=== PATIENT | female | born 1980 | race Caucasian/White ===

== ENCOUNTER 2018-08-08 11:00 | Inpatient (IN) | payer OTHER, SELFPAY ==
[2018-08-08] MEDS ORDERED: Ondansetron PF 4 MG/2 ML Vial IVP PRN ×3 (11:10→16:59)
[2018-08-08] MEDS ORDERED: Promethazine HCl 25 MG/ML VIAL IM PRN ×3 (11:10→16:59)
[2018-08-08] MEDS ORDERED: Calcium Gluc 4.6 MEQ/10 ML (100 MG/ML) SLOW IVP PRN (11:10)
[2018-08-08] MEDS ORDERED: Magnesium Sulfate 20 gm/500 ml 20 GM/500 ML BAG IVPB SCH (11:15)
[2018-08-08 12:13] LABS: #Eosinphils 0.1 thou/uL (0.0-0.7); #Lymphocytes 1.2 thou/uL (1.20-3.40); #Monocytes 0.4 thou/uL (0.11-0.59); #Neutrophils 7.9 thou/uL (1.40-6.50); %Basophils 0.3 % (0.0-1.0); %Lymphocytes 12.3 % (21.0-51.0); %Monocytes 4.4 % (0.0-10.0); Hemoglobin 13.4 g/dL (12.0-16.0); Mean Corpuscular HGB CONC 34.1 g/dL (32.0-36.0); Mean Corpuscular Hemoglobin 33.2 pg (27.0-31.0); Mean Corpuscular Volume 97.1 fL (78.0-98.0); Mean Platelet Volume 9.5 fL (7.4-10.4); Platelet Count 187 thou/uL (130-400); Red Blood Cell (RBC) Count 4.04 mill/uL (4.20-5.40); White Blood Cell (WBC) Count 9.6 thou/uL (4.8-10.8)
[2018-08-08] MEDS ORDERED: Ondansetron PF 4 MG/2 ML Vial ONE ×2 (12:15→16:51)
[2018-08-08] MEDS ORDERED: ePHEDrine 50 MG/ML VIAL ONE (12:15)
[2018-08-08] MEDS ORDERED: Ketorolac Tromethamine 30 MG/ML VIAL ONE ×2 (12:15→16:51)
[2018-08-08 12:38] LABS: ALT (SGPT) 28 U/L (8-55); AST (SGOT) 57 U/L (5-34); Albumin 3.3 g/dL (3.5-5.0); Alkaline Phosphatase 171 U/L (40-150); Anion Gap 15 mmol/L (10-20); BUN (Urea Nitrogen) 8 mg/dL (7.0-18.7); Bilirubin, Total 0.3 mg/dL (0.2-1.2); Calc. Creatinine Clearance 0 mL/min (70-130); Calcium 9.3 mg/dL (7.8-10.44); Carbon Dioxide 18 mmol/L (22-29); Chloride 109 mmol/L (98-107); Estimated GFR-MDRD 83; Globulin 3.8 g/dL (2.4-3.5); Glucose 91 mg/dL (70-105); Potassium 5.6 mmol/L (3.5-5.1); Protein, Total 7.1 g/dL (6.0-8.3); Sodium 136 mmol/L (136-145)
[2018-08-08 12:49] VITALS: BMI 35.2
[2018-08-08 12:53] LABS: Hep B Surf Ag Non-Reactive S/CO (NonReactive); Syphilis Antibody Nonreactive (Nonreactive); Syphilis Antibody Index 0.04 S/CO (<1.00 Non-Reactive)
[2018-08-08] MEDS ORDERED: Magnesium Sulfate 20 GM/WATER 500 ML BAG IVPB SCH (13:00)
[2018-08-08] MEDS ORDERED: Bicitra 30 ML UDCUP PO SCH (13:00)
[2018-08-08] MEDS ORDERED: CEFAZOLIN 2 GM in Premix Bag 1 BAG IVPB SCH (13:00)
[2018-08-08] MEDS: Lactated Ringer's 1,000 ML IV SCH ×2 (14:16→15:56)
[2018-08-08] MEDS ORDERED: ePHEDrine/0.9% NaCl/PF SYRINGE 50 mg/10 ml ONE ×2 (16:51→18:09)
[2018-08-08] MEDS ORDERED: MORPHINE 5 MG/10 ML PF VIAL ONE (16:51)
[2018-08-08] MEDS ORDERED: Oxytocin 10 UNITS/ML VIAL ONE ×3 (16:51→18:42)
[2018-08-08] MEDS ORDERED: Promethazine HCl 25 MG SUPP PR PRN ×2 (16:52→16:59)
[2018-08-08] MEDS ORDERED: Meperidine HCl/PF 25 MG/ML VIAL SLOW IVP PRN ×2 (16:52→16:59)
[2018-08-08] MEDS ORDERED: Naloxone HCl 0.4 mg/ml Vial IVP PRN ×4 (16:52→16:59)
[2018-08-08] MEDS ORDERED: diphenhydrAMINE 50 MG/ML VIAL IVP PRN ×2 (16:52→16:59)
[2018-08-08] MEDS ORDERED: Eucerin (Mineral Oil/Petrolatum,White) 30 gm Jar TOP PRN ×2 (16:52→16:59)
[2018-08-08] MEDS ORDERED: HYDROmorphone 2 MG/ML VIAL SLOW IVP PRN ×2 (16:52→16:59)
[2018-08-08] MEDS ORDERED: Ondansetron HCl/PF 4 MG/2 ML Vial IVP PRN ×2 (16:52→16:59)
[2018-08-08] MEDS ORDERED: L&D-Morphine 4 MG/ML VIAL SLOW IVP PRN (16:52)
[2018-08-08] MEDS ORDERED: Naloxone HCl 0.4 mg/ml Vial IV PRN ×2 (16:52→16:59)
[2018-08-08] MEDS ORDERED: Ketorolac Tromethamine 30 MG/ML VIAL IVP PRN ×2 (16:52→16:59)
[2018-08-08] MEDS ORDERED: Communication Order-Pharmacy FS SCH ×2 (17:00)
[2018-08-08] MEDS ORDERED: Ketorolac Tromethamine 30 MG/ML VIAL IVP SCH ×2 (17:00)
[2018-08-08] MEDS ORDERED: HYDROcodone/Acetaminophen 5/325 mg Tablet PO PRN (22:30)
[2018-08-08] MEDS ORDERED: Acetaminophen 325 MG TAB PO PRN (22:30)
[2018-08-08] MEDS ORDERED: Simethicone Chewable 80 MG TAB PO PRN (22:30)
[2018-08-08] MEDS ORDERED: NS / Oxytocin 40 units/1000ml 1,000 ML IV SCH (22:30)
[2018-08-08] MEDS ORDERED: Lanolin Ointment 7 GM TUBE TOP PRN (22:30)
[2018-08-09] MEDS: Docusate Calcium (SURFAK) 240 MG CAP PO SCH ×3 (01:36→20:10)
[2018-08-09] MEDS: Ferrous Sulfate 325 MG TAB PO SCH ×3 (01:36→20:10)
[2018-08-09] MEDS: Lactated Ringer's 1,000 ML IV SCH (02:00)
[2018-08-09 06:16] LABS: Hemoglobin 9.6 g/dL (12.0-16.0); Mean Corpuscular HGB CONC 34.1 g/dL (32.0-36.0); Mean Corpuscular Hemoglobin 34.2 pg (27.0-31.0); Mean Platelet Volume 9.1 fL (7.4-10.4); Platelet Count 164 thou/uL (130-400); RBC Distribution Width 12.9 % (11.5-14.5); Red Blood Cell (RBC) Count 2.81 mill/uL (4.20-5.40); White Blood Cell (WBC) Count 12.7 thou/uL (4.8-10.8)
[2018-08-09] MEDS ORDERED: CEFAZOLIN 2 GM in Premix Bag 1 BAG IVPB SCH (09:00)
[2018-08-09] MEDS ORDERED: Adacel (T-DAP) 0.5 ML SYRINGE IM ONE (09:00)
[2018-08-09] MEDS: Prenatal Vitamin 1 TAB PO SCH (09:20)
[2018-08-09] MEDS: Ibuprofen 800 MG TAB PO SCH (20:10)
[2018-08-09] MEDS: HYDROcodone/Acetaminophen 5/325 mg Tablet PO PRN (22:02)
[2018-08-10] MEDS: HYDROcodone/Acetaminophen 5/325 mg Tablet PO PRN ×3 (02:57→17:18)
[2018-08-10] MEDS: Ibuprofen 800 MG TAB PO SCH ×3 (06:18→21:57)
[2018-08-10] MEDS: Ferrous Sulfate 325 MG TAB PO SCH ×2 (08:40→21:57)
[2018-08-10] MEDS: Docusate Calcium (SURFAK) 240 MG CAP PO SCH ×2 (08:40→21:57)
[2018-08-10] MEDS: Prenatal Vitamin 1 TAB PO SCH (08:40)
--- NOTE | 2018-08-10 13:03 | OP ---
DATE OF PROCEDURE: 08/08/2018 RESIDENT SURGEON: Arlene Malik DO PREOPERATIVE DIAGNOSES: 1. Intrauterine at 36 and 6/7th weeks. 2. In vitro fertilization . 3. Preeclampsia. 4. Declines trial of labor. POSTOPERATIVE DIAGNOSES: 1. Intrauterine at 36 and 6/7th weeks. 2. In vitro fertilization . 3. Preeclampsia. 4. Declines trial of labor. PROCEDURE PERFORMED: Primary low transverse section. ANESTHESIA: Spinal catheterization. FINDINGS: 1. Severe preeclampsia - blood pressure, proteinuria, elevated liver function, edema, and headache. 2. Vigorous female , 6 pounds 5 ounces, Apgars 8 and 9. 3. Normal uterus, tubes, and ovaries. COMPLICATIONS: None. SPECIMENS REMOVED: Cord blood. BLOOD LOSS: Approximately 500 mL. HISTORY AND INDICATIONS: Mrs. Nathalia Carnes is a very pleasant 38-year-old white female, 1, para 0, who is followed in my clinic for obstetric care. The patient conceived via in vitro fertilization. Otherwise, she has had an uncomplicated . She presented to the office on the morning of 08/08/2018, with significantly elevated blood pressures and proteinuria. Her pressures were in the 160-170 over 110s. She also had noticeable edema and complained of a headache. She was sent to Labor and Delivery for evaluation and diagnosis of preeclampsia was confirmed. The patient has a very small pelvis and does not tolerate exams well. She has declined trial of labor. With current finding, she is remote from delivery and I agree proceeding with primary section. The patient has been thoroughly counseled and consented. Surgical disclosures have been signed and placed in the chart. Heating Unit [employer]ic has been notified. The procedure is outlined. DESCRIPTION OF PROCEDURE: After thorough consent and counseling, Mrs. Carnes was taken to the operating room and adequate level of anesthesia was obtained via spinal catheterization. The patient was prepped and draped in usual sterile fashion for abdominal surgery. A Caballero was placed in the bladder, which was noted to be draining clear urine. Attention was then turned to performing the primary low-transverse section. A Pfannenstiel incision was made and carried sharply to the fascia, which was also sharply incised. The midline was identified. The rectus muscles were retracted laterally. The abdominal peritoneal cavity was entered with usual safeguards carried out. A retractor was placed, and the bladder flap was created on the vesicouterine peritoneum. A bladder blade was then placed. A low-transverse incision was made on the poorly developed lower uterine segment. The patient had an anterior placenta and delivery was performed through the placenta. Brisk bleeding was noted. Amniotomy was performed. Because the patient still high in the pelvis, a vacuum was used to facilitate delivery of the vertex in an atraumatic fashion. Head was delivered and baby was bulb suctioned on the abdomen. Shoulders and body were then delivered in an atraumatic fashion. The cord was doubly clamped and cut, and the was handed to the neonatology team in attendance for the delivery. The infant was a vigorous viable female weighing 6 pounds 5 ounces with Apgars of 8 and 9 obtained at one and five minutes respectively. Cord blood was obtained. The placenta was manually removed from the uterus. Uterus was exteriorized and good tone was noted. The uterine cavity was cleared of any remaining clot and fluid. The low-transverse incision was closed with a running locking ligature of #1 chromic. A second imbricating layer was placed . Several [id number] ligatures of 0 Vicryl suture were placed for additional strength. Good hemostasis was noted. The vesicouterine peritoneum was reapproximated to the lower segment with running ligature of 2-0 Monocryl suture. The posterior cul-de-sac gutters were cleared of clot and fluid. Seprafilm was applied to the low-transverse incision and to the anterior aspect of the uterus for adhesion prevention. The uterus was returned to the abdomen, and good tone and hemostasis were appreciated. Lap, sponge, and needle counts were correct. The peritoneum was then closed with running ligature of 2-0 Vicryl suture. The rectus muscles were reapproximated in the midline with interrupted ligatures of 2-0 Vicryl suture. The fascia was then closed with 2 ligatures of 0 Vicryl suture, which were tied in the midline. Good fascial integrity was noted. The incision was irrigated with copious amount of warm normal saline. The subcutaneous tissue was closed with interrupted ligatures of 2-0 plain. The skin was closed with subcuticular stitch of 4-0 Monocryl. Dermabond was placed. A pressure dressing and ice packs were subsequently placed. Lap, sponge, and needle counts correct x3. Estimated blood loss in the surgical procedure was approximately 500 mL. The patient was taken to recovery room in good condition. Immediately following surgery, the patient and family were made aware of the surgical procedure and operative findings. Questions answered to their satisfaction. Mother and baby were doing well postoperatively. Job ID: [id number]
[2018-08-11] MEDS: HYDROcodone/Acetaminophen 5/325 mg Tablet PO PRN ×2 (05:01→10:08)
[2018-08-11] MEDS: Ibuprofen 800 MG TAB PO SCH ×2 (05:01→13:15)
[2018-08-11 07:56] VITALS: BP 114/66; TEMP 98.3
[2018-08-11] MEDS: Prenatal Vitamin 1 TAB PO SCH (10:07)
[2018-08-11] MEDS: Ferrous Sulfate 325 MG TAB PO SCH (10:07)
[2018-08-11] MEDS: Docusate Calcium (SURFAK) 240 MG CAP PO SCH (10:07)
== END 2018-08-11 14:38 | disposition home or self-care (01) | DRG 788 ==
LOC: L&D 11:00 → 3SW 23:01
PROVIDERS: ADMIT Obstetrics & Gynecology; ATTEND Obstetrics & Gynecology
PROC: 10D00Z1 Extraction of Products of Conception, Low, Open Approach (ICD-10-PCS; principal; 2018-08-08)
PROC: 3E0P05Z Introduction of Adhesion Barrier into Female Reproductive, Open Approach (ICD-10-PCS; 2018-08-08)
DX: O14.94 Unspecified pre-eclampsia, complicating childbirth (principal); O60.14X0 Preterm labor third trimester with preterm delivery third trimester, not applicable or unspecified; Z3A.36 36 weeks gestation of pregnancy; Z37.0 Single live birth
CPT/HCPCS: 36415; 51702; 80053; 81003; 82570; 84156; 84550; 85025; 85027; 86780; 86850; 86900; 86901; 87340; J1885; J2270; J2405; J2590; J3475; J3490